=== PATIENT | male | born 1985 | race Caucasian/White ===

== ENCOUNTER 2018-10-29 16:21 | Emergency (ER) | payer SELFPAY ==
[~2018-10-29] VITALS: Ht 177.8 cm; Wt 65.9 kg
[2018-10-29 16:37] VITALS: BP 93/62
== END 2018-10-29 20:30 | disposition left against medical advice (07) ==
LOC: EMS 16:25
DX: F11.23 Opioid dependence with withdrawal (principal); Z53.21 Procedure and treatment not carried out due to patient leaving prior to being seen by health care provider